=== PATIENT | female | born 1955 | race Caucasian/White ===

== ENCOUNTER 2018-10-08 21:54 | Inpatient (IN) | payer OTHER ==
[2018-10-09] MEDS ORDERED: Metoclopramide IV* 5 MG/ML 2 ML VIAL IV SLOW PU ONE (01:47)
[2018-10-09] MEDS ORDERED: NS 0.9% 1000 ML** 1,000 ML IV ONE ×2 (01:47→03:03)
[2018-10-09] MEDS ORDERED: Ketorolac INJ* 30 MG/ML 1 ML VIAL IV PUSH ONE (01:48)
[2018-10-09] MEDS ORDERED: diPHENhydraMINE IV* 50 MG/ML 1 ml VIAL (BENADRYL) SLOW PUSH ONE (01:48)
[2018-10-09] MEDS ORDERED: Morphine 4 MG/ML VIAL (1 ml) 4 MG/ML VIAL IV ONE (01:48)
[2018-10-09] MEDS ORDERED: Lidocaine 2% w/ EPI 1:200,000* 20 ML VIAL ONE (02:20)
[2018-10-09 02:41] LABS: ABS Lymphocytes 0.4 10^3/ul (1.0-4.8); ABS Monocytes 0.2 10^3/ul (0-0.8); ABS Neutrophils 3.8 10^3/ul (1.5-7.7); Eosinophil % 0.2 %; Hematocrit 25 % (35-47); Hemoglobin 8.4 g/dL (12.0-16.0); Lymphocyte % 9.5 %; Mean Corpuscular HGB Conc 34 g/dL (31-36); Mean Corpuscular Hemoglobin 32 pg (27-31); Mean Corpuscular Volume 94 fL (80-97); Mean Platelet Volume 9.1 fL (7.4-10.4); Platelet Count 136 10^3/uL (150-450); Red Blood Count 2.61 10^6 /uL (3.70-4.87); Red Cell Distribution Width 13 % (10-15); White Blood Count 4.5 10^3/uL (3.5-10.8)
[2018-10-09 02:49] LABS: Activated Partial Thrombo Time 42.2 seconds (26.0-38.0); INR 1.51 (0.82-1.09)
[2018-10-09 02:58] LABS: ALT 14 U/L (7-52); AST 11 U/L (13-39); Albumin 2.3 g/dL (3.2-5.2); Albumin/Globulin Ratio 2.1 (1-3); Alkaline Phosphatase 42 U/L (34-104); Blood Urea Nitrogen 10 mg/dL (6-24); C Reactive Protein 1.86 mg/L (<8.01); CO2 Carbon Dioxide 15 mmol/L (22-32); EGFR African American 274.6 (>60); EGFR Non-African American 226.9 (>60); Globulin 1.1 g/dL (2-4); Glucose 90 mg/dL (70-100); Sodium 143 mmol/L (135-145); Total Protein 3.4 g/dL (6.4-8.9)
[2018-10-09 03:01] LABS: Anion Gap 5 mmol/L (2-11); Calcium 4.4 mg/dL (8.6-10.3); Chloride 123 mmol/L (101-111); Potassium 1.9 mmol/L (3.5-5.0)
[2018-10-09] MEDS ORDERED: Potassium Chlor TAB* 20 MEQ TAB.ER PO ONE (03:04)
[2018-10-09] MEDS ORDERED: KCL 10 MEQ/50 ML IVPREMIX* 10 MEQ/50 ML BAG IV ONE (03:04)
[2018-10-09] MEDS ORDERED: Magnesium Sulfate 2 GM IV* 2 GM/50 ML BAG IVPB ONE (03:04)
[2018-10-09] MEDS ORDERED: Calcium Gluconate INJ* 1 GM in NS 0.9% 50 ML* 50 ML IVPB ONE (03:05)
[2018-10-09] MEDS ORDERED: NS 0.9% 50 ML* 50 ML ONE (03:07)
[2018-10-09 03:13] LABS: Body Fluid Source Cerebral Spinal
--- NOTE | 2018-10-09 03:14 | ED ---
Headache - HPI Summary HPI Summary: The pt is a 62 yr old female presenting to [facility] c/o headache beginning 12 hours [employer]ACTIVE [employer]ET[employer]. She was diagnosed with shingles 2 days ago. She reports nerve pain starting 6 days ago, blisters on her left arm starting 3 days ago, back and neck pain, feeling like she is burning up, nausea, vomiting, and headache. She is currently in pain and rates it as a 9/10 in severity. The pt has been taking Valtrex, and a rotation of tramadol, ibuprofen, and Tylenol every 2 hours. She has a hx of migraines but states the present BARTHOLOMEW is dissimilar to her migraines. She denies photophobia. - History Of Current Complaint Chief Complaint: EDHeadache Stated Complaint: HEADACHE/BACK PAIN PER PT Time Seen by Provider: 10/09/18 01:50 Hx Obtained From: Patient Onset/Duration: Gradual Onset, Started days ago, Still Present Initially Headache Was: Initial Pain Scale(0-10)= - 9 Currently Pain Is: Current Pain Scale(0-10)= - 9 Timing: Constant Associated Signs And Symptoms: Nausea, Vomiting, Fever - subjective fever, on vitals temp is 99.1 F, Neck Pain, Other (Noted In Comments) - back pain, blisters, "nerve" pain, "burning up" - Allergies/Home Medications Allergies/Adverse Reactions: Allergies Allergy/AdvReac Type Severity Reaction Status Date / Time No Known Allergies Allergy Verified 05/04/12 16:10 Home Medications: Home Medications Gabapentin CAP(*) [Neurontin 300 CAP(*)] 300 mg PO BEDTIME 10/09/18 [History Confirmed 10/09/18] Omeprazole 20 mg PO DAILY 10/09/18 [History Confirmed 10/09/18] Valacyclovir HCl [Valacyclovir] 1,000 mg PO TID 10/09/18 [History Confirmed ] ZOLMitriptan [Zomig] 2.5 mg NS DAILY PRN 10/09/18 [History Confirmed 10/09/18] PMH/Surg Hx/FS Hx/Imm Hx Endocrine/Hematology History: Reports: Hx Thyroid Disease Denies: Hx Diabetes Cardiovascular History: Denies: Hx Hypertension, Hx Pacemaker/ICD Respiratory History: Denies: Hx Asthma Sensory History: Denies: Hx Hearing Aid Psychiatric History: Denies: Hx Panic Disorder - Cancer History Cancer Type, Location and Year: basal cell,skin - Surgical History Surgery Procedure, Year, and Place: knee meniscus left knee, RT carpal tunnel and trigger finger release Infectious Disease History: No Infectious Disease History: Denies: Traveled Outside the [place] in Last 30 Days - Family History Known Family History: Positive: Other - FMHx of colonic polyps - Social History Substance Use Type: Reports: None Hx Tobacco Use: No Review of Systems Constitutional: Other - positive - feeling "hot" Positive: Fever - subjective fever, on vitals temp is 99.1 F Negative: Photophobia Positive: Vomiting, Nausea Positive: Other - Positive - back and neck pain Positive: Other - Positive - blisters on left arm Neurological: Other - positive - "nerve" pain Positive: Headache All Other Systems Reviewed And Are Negative: Yes Physical Exam - Summary Physical Exam Summary: VITAL SIGNS: Reviewed. GENERAL: Patient is a well-developed and nourished female who is lying comfortable in the stretcher. Patient is not in any acute respiratory distress. HEAD AND FACE: No signs of trauma. No ecchymosis, hematomas or skull depressions. No sinus tenderness. EYES: PERRLA, EOMI x 2, No injected conjunctiva, no nystagmus. EARS: Hearing grossly intact. Ear canals and tympanic membranes are within normal limits. MOUTH: Oropharynx within normal limits. NECK: Supple, trachea is midline, no adenopathy, no JVD, no carotid bruit, no c- spine tenderness, neck with full ROM, mild nuchal rigidity CHEST: Symmetric, no tenderness at palpation LUNGS: Clear to auscultation bilaterally. No wheezing or crackles. CVS: Regular rate and rhythm, S1 and S2 present, no murmurs or gallops appreciated. ABDOMEN: Soft, non-tender. No signs of distention. No rebound no guarding, and no masses palpated. Bowel sounds are normal. EXTREMITIES: FROM in all major joints, no edema, no cyanosis or clubbing. NEURO: Alert and oriented x 3. No acute neurological deficits. Speech is normal and follows commands. GCS 15. SKIN: Dry and warm. Vesicular rash of left wrist and left shoulder. Triage Information Reviewed: Yes Vital Signs On Initial Exam: Initial Vitals Temp Pulse Resp BP Pulse Ox 99.1 F 92 18 157/99 96 10/08/18 21:58 10/08/18 21:58 10/08/18 21:58 10/08/18 21:58 10/08/18 21:58 Vital Signs Reviewed: Yes Procedures - Lumbar Puncture l3-l4 Position: Lateral Decubitus Aseptic Technique: Lidocaine Anesthesia Used: 2.0% Lido - w/ epi Spinal Needle Used: 20 Gauge Lumbar Puncture Note: L3-L4 Diagnostics - Vital Signs Vital Signs Temp Pulse Resp BP Pulse Ox 10/09/18 01:58 18 10/09/18 00:03 98.6 F 84 18 154/87 96 10/08/18 21:58 99.1 F 92 18 157/99 96 - Laboratory Lab Results: Lab Results 10/09/18 10/09/18 10/09/18 Range/Units 02:32 02:32 02:32 WBC 4.5 (3.5-10.8) 10^3/uL RBC 2.61 L (3.70-4.87) 10^6 /uL Hgb 8.4 L (12.0-16.0) g/dL Hct 25 L (35-47) % MCV 94 (80-97) fL MCH 32 H (27-31) pg MCHC 34 (31-36) g/dL RDW 13 (10-15) % Plt Count 136 L (150-450) 10^3/uL MPV 9.1 (7.4-10.4) fL Neut % (Auto) 85.3 % Lymph % (Auto) 9.5 % [place] % (Auto) 4.5 % Eos % (Auto) 0.2 % Baso % (Auto) 0.5 % Absolute Neuts (auto) 3.8 (1.5-7.7) 10^3/ul Absolute Lymphs (auto) 0.4 L (1.0-4.8) 10^3/ul Absolute Monos (auto) 0.2 (0-0.8) 10^3/ul Absolute Eos (auto) 0.0 (0-0.6) 10^3/ul Absolute Basos (auto) 0.0 (0-0.2) 10^3/ul Absolute Nucleated RBC 0.0 10^3/ul Nucleated RBC % 0.0 INR (Anticoag Therapy) 1.51 H (0.82-1.09) APTT 42.2 H (26.0-38.0) seconds Sodium 143 (135-145) mmol/L Potassium 1.9 L* (3.5-5.0) mmol/L Chloride 123 H (101-111) mmol/L Carbon Dioxide 15 L (22-32) mmol/L Anion Gap 5 (2-11) mmol/L BUN 10 (6-24) mg/dL Creatinine < 0.30 L (0.51-0.95) mg/dL Est GFR ( Amer) 274.6 (>60) Est GFR (Non-Af Amer) 226.9 (>60) BUN/Creatinine Ratio 33.0 H (8-20) Glucose 90 (70-100) mg/dL Calcium 4.4 L* (8.6-10.3) mg/dL Total Bilirubin 0.20 (0.2-1.0) mg/dL AST 11 L (13-39) U/L ALT 14 (7-52) U/L Alkaline Phosphatase 42 (34-104) U/L C-Reactive Protein 1.86 (<8.01) mg/L Total Protein 3.4 L (6.4-8.9) g/dL Albumin 2.3 L (3.2-5.2) g/dL Globulin 1.1 L (2-4) g/dL Albumin/Globulin Ratio 2.1 (1-3) Result Diagrams: 10/09/18 05:36 10/09/18 05:36 Lab Statement: Any lab studies that have been ordered have been reviewed, and results considered in the medical decision making process. - CT BRAIN CT CT Interpretation Completed By: Radiologist Summary of CT Findings: IMPRESSION: No acute intracranial abnormality. THIS REPORT WAS REVIEWED BY DR. SESAY Headache Course/Dx - Course Course Of Treatment: The pt is a 62 yr old female presenting to [facility] c/o headache nerve pain starting 6 days ago, blisters on her left arm starting 3 days ago, back and neck pain, feeling like she is burning up, nausea, and vomiting. She was diagnosed with shingles 2 days ago. Photophobia is denied. Test results with no significant abnormalities except for RBC @ 2.61, Hgb @ 8.4 , Hct @ 25, MCH @ 32, Plt Count 136, Absolute Lymphs @ 0.4, INR @ 1.51, APTT @ 42.2, Potassium @ 1.9, Chloride @ 123, Carbon dioxide @ 15, Creatinine < 0.30, BUN/Creatinine @ 33.0, Calcium @ 4.4, Magnesium @ 1.0, AST @ 11, Total protein @ 3.4, Albumin @ 2.3, Globulin @ 1.1. BRAIN CT IMPRESSION: No acute intracranial abnormality. Patient had L3-L4 lumbar puncture done, lido 2% w/ epi was used, patient was in lateral decubitus position. CSF Glucose @ 77, and CSF Total Protein @ 72. In the ED course the patient was given 25mg Benadryl IV , 15mg Toradol IV, 2 gm in 50 mls Magnesium sulfate @ 50 mls/hr IVPB, 10 mg Reglan IV, 4 mg Morphine IV, 40 meq Klor Con Er, 10 meq in 50 mls Potassium Chloride @ 50 mls/hr IV, and 1000 mls Ns @ 1000 mls/hr IV (twice). The pt is diagnosed with hypocalcemia and hypokalemia. Dr. Moore will admit the pt [place] [facility] [place] The patient is agreeable with this plan. - Diagnoses Provider Diagnoses: Hypokalemia, Hypocalcemia - Physician Notifications Discussed Care Of Patient With: Alex Moore Time Discussed With Above Provider: 04:32 Instructed by Provider To: Admit As Inpatient Discharge - Sign-Out/Discharge Documenting (check all that apply): Patient Departure - Admit Patient Received Moderate/Deep Sedation with Procedure: No - Discharge Plan Condition: Stable Disposition: ADMITTED TO [facility] Referrals: Ashwini Ramsay, BOXCAR WEIGHER [Primary Care Provider] - - Attestation Statements Document Initiated by Scribe: Yes Documenting Scribe: DAVINA VICENTE Provider For Whom Mehrane is Documenting (Include Credential): ALON SESAY MD Scribe Attestation: DAVINA Maddox, scribed for ALON SESAY MD on 10/09/18 at 0627. Status of Scribe Document: Ready
[2018-10-09 03:29] LABS: CSF Glucose 77 mg/dL (40-70)
[2018-10-09 03:45] LABS: TSH (Thyroid Stimulating Horm) 0.47 mcIU/mL (0.34-5.60)
[2018-10-09 04:54] LABS: Urine Appearance Clear; Urine Bilirubin Negative (Negative); Urine Blood Negative (Negative); Urine Color Yellow; Urine Glucose Negative (Negative); Urine Ketones Trace (Negative); Urine Nitrite Negative (Negative); Urine Protein Negative (Negative); Urine Specific Gravity 1.009 (1.010-1.030); Urine Urobilinogen Negative (Negative)
[2018-10-09 05:46] LABS: ABS Lymphocytes 0.8 10^3/ul (1.0-4.8); ABS Monocytes 0.3 10^3/ul (0-0.8); ABS Neutrophils 5.6 10^3/ul (1.5-7.7); Eosinophil % 0.1 %; Hematocrit 35 % (35-47); Hemoglobin 12.1 g/dL (12.0-16.0); Lymphocyte % 11.9 %; Mean Corpuscular HGB Conc 35 g/dL (31-36); Mean Corpuscular Hemoglobin 33 pg (27-31); Mean Corpuscular Volume 94 fL (80-97); Mean Platelet Volume 9.5 fL (7.4-10.4); Platelet Count 205 10^3/uL (150-450); Red Cell Distribution Width 14 % (10-15); White Blood Count 6.8 10^3/uL (3.5-10.8)
--- NOTE | 2018-10-09 06:02 | HP ---
History of Present Illness - History of Present Illness History of Present Illness: 62yoF with hypothroidism, depression, arthritis on gabapentin, migraine history but hasn't had one in a long time, recently diagnosed shingles on the left upper extremity started on valacyclovir 2 days ago comes in due to severe headache. Pain is all over her head, some photophobia but not as much as she usually has, worse with movement, neck rigitidy, felt feverish but temperature here was normal. Patient had episode of vomiting non-stop when she first arrived. Patient initially had malaise and felt like she had the flu. 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 GERD Shingles diagnosed resently Depression Migraine hasn't had one in long time Arthritis Past Surgical History Left knee meniscus tear repaired Left knee replacement Right carpal tunnel release Right 3rd and 4th trigger finger release Multiple skin excisions for basal cell ca mostly from face and one in leg. Social History Quit in 1993 piror to that had 15-20pack year history, used to drink often but now cut down and hasn't had one in few days drinks wiskey. No other drugs. 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 Lives with domestic partner and son. Family History Dementia in both parents, arthritis-rheumatoid in father, osteoarthritis in mother, mother also had heart problems. Allergies Allergy/AdvReac Type Severity Reaction Status Date / Time No Known Allergies Allergy Verified 05/04/12 16:10 Home Medications Medication Instructions Recorded Confirmed Type buPROPion TAB* [Wellbutrin TAB*] 150 mg PO BID 05/04/12 10/09/18 History Levothyroxine TAB* [Synthroid TAB*] 0.75 mcg PO DAILY 04/19/18 10/09/18 History Gabapentin CAP(*) [Neurontin 300 300 mg PO BEDTIME 10/09/18 10/09/18 History CAP(*)] Omeprazole 20 mg PO DAILY 10/09/18 10/09/18 History Valacyclovir HCl [Valacyclovir] 1,000 mg PO TID 10/09/18 10/09/18 History ZOLMitriptan [Zomig] 2.5 mg NS DAILY PRN 10/09/18 10/09/18 History Review of Systems - Measurements Intake and Output: Intake and Output Last 24 Hours 10/06/18 10/07/18 10/08/18 10/09/18 06:59 06:59 06:59 06:59 Intake Total 2100 Balance 2100 Weight 155 lb Intake: IV Fluids 2099 - Review of Systems Constitutional Symptoms: Positive: Fever Dermatology: Positive: Skin Lesions - Left extremity shingles. Eyes: Negative: Change in Vision Pulmonary: Negative: Cough, Sputum, Shortness of Breath Cardiology: Negative: Chest Pain, Palpitations Gastroenterology: Positive: Vomiting Negative: Abdominal Pain, Constipation, Diarrhea Endocrinology: Positive: Thyroid Problems Objective Vital Signs - 8 hr 10/08/18 10/09/18 10/09/18 21:58 00:03 01:58 Temperature 99.1 F 98.6 F Pulse Rate 92 84 Respiratory 18 18 18 Rate Blood Pressure 157/99 154/87 (mmHg) O2 Sat by Pulse 96 96 Oximetry 10/09/18 10/09/18 10/09/18 02:20 03:00 04:00 Temperature Pulse Rate 78 77 Respiratory 6 15 16 Rate Blood Pressure (mmHg) O2 Sat by Pulse 95 94 Oximetry Oxygen Devices in Use Now: None Eyes: No Scleral Icterus, PERRLA Ears/Nose/Mouth/Throat: NL Teeth, Lips, Gums, Clear Oropharnyx, Mucous Membranes Moist Neck: NL Appearance and Movements; NL JVP, Trachea Midline Respiratory: Clear to Auscultation Cardiovascular: NL Sounds; No Murmurs; No JVD, RRR, No Edema Abdominal: NL Sounds; No Tenderness; No Distention, No Hepatosplenomegaly Extremities: No Edema Skin: - - Multiple papular and vesicular rash on the left extremity. Neurological: Alert and Oriented x 3, NL Sensation, NL Muscle Strength and Tone Nutrition: Taking PO's Result Diagrams: 10/09/18 05:36 10/09/18 05:36 Additional Lab and Data: Laboratory Last Values WBC 6.8 10^3/uL (3.5-10.8) 10/09/18 05:36 RBC 3.70 10^6 /uL (3.70-4.87) 10/09/18 05:36 Hgb 12.1 g/dL (12.0-16.0) 10/09/18 05:36 Hct 35 % (35-47) 10/09/18 05:36 MCV 94 fL (80-97) 10/09/18 05:36 MCH 33 pg (27-31) H 10/09/18 05:36 MCHC 35 g/dL (31-36) 10/09/18 05:36 RDW 14 % (10-15) 10/09/18 05:36 Plt Count 205 10^3/uL (150-450) 10/09/18 05:36 MPV 9.5 fL (7.4-10.4) 10/09/18 05:36 Neut % (Auto) 82.5 % 10/09/18 05:36 Lymph % (Auto) 11.9 % 10/09/18 05:36 [place] % (Auto) 5.0 % 10/09/18 05:36 Eos % (Auto) 0.1 % 10/09/18 05:36 Baso % (Auto) 0.5 % 10/09/18 05:36 Absolute Neuts (auto) 5.6 10^3/ul (1.5-7.7) 10/09/18 05:36 Absolute Lymphs (auto) 0.8 10^3/ul (1.0-4.8) L 10/09/18 05:36 Absolute Monos (auto) 0.3 10^3/ul (0-0.8) 10/09/18 05:36 Absolute Eos (auto) 0.0 10^3/ul (0-0.6) 10/09/18 05:36 Absolute Basos (auto) 0.0 10^3/ul (0-0.2) 10/09/18 05:36 Absolute Nucleated RBC 0.0 10^3/ul 10/09/18 05:36 Nucleated RBC % 0.0 10/09/18 05:36 INR (Anticoag Therapy) 1.51 (0.82-1.09) H 10/09/18 02:32 APTT 42.2 seconds (26.0-38.0) H 10/09/18 02:32 Sodium 137 mmol/L (135-145) 10/09/18 05:36 Potassium 3.8 mmol/L (3.5-5.0) D 10/09/18 05:36 Chloride 107 mmol/L (101-111) 10/09/18 05:36 Carbon Dioxide 24 mmol/L (22-32) 10/09/18 05:36 Anion Gap 6 mmol/L (2-11) 10/09/18 05:36 BUN 13 mg/dL (6-24) 10/09/18 05:36 Creatinine 0.50 mg/dL (0.51-0.95) L 10/09/18 05:36 Est GFR ( Amer) 152.3 (>60) 10/09/18 05:36 Est GFR (Non-Af Amer) 125.9 (>60) 10/09/18 05:36 BUN/Creatinine Ratio 26.0 (8-20) H 10/09/18 05:36 Glucose 131 mg/dL (70-100) H 10/09/18 05:36 Calcium 8.5 mg/dL (8.6-10.3) L 10/09/18 05:36 Phosphorus 2.1 mg/dL (2.5-5.0) L 10/09/18 05:36 Magnesium 2.5 mg/dL (1.9-2.7) 10/09/18 05:36 Total Bilirubin 0.20 mg/dL (0.2-1.0) 10/09/18 05:36 AST 19 U/L (13-39) 10/09/18 05:36 ALT 25 U/L (7-52) 10/09/18 05:36 Alkaline Phosphatase 78 U/L (34-104) 10/09/18 05:36 C-Reactive Protein 1.86 mg/L (<8.01) 10/09/18 02:32 Total Protein 6.0 g/dL (6.4-8.9) L 10/09/18 05:36 Albumin 4.0 g/dL (3.2-5.2) 10/09/18 05:36 Globulin 2.0 g/dL (2-4) 10/09/18 05:36 Albumin/Globulin Ratio 2.0 (1-3) 10/09/18 05:36 TSH 0.47 mcIU/mL (0.34-5.60) 10/09/18 02:32 Urine Color Yellow 10/09/18 04:40 Urine Appearance Clear 10/09/18 04:40 Urine pH 7.0 (5-9) 10/09/18 04:40 Ur Specific [place] 1.009 (1.010-1.030) L 10/09/18 04:40 Urine Protein Negative (Negative) 10/09/18 04:40 Urine Ketones Trace (Negative) A 10/09/18 04:40 Urine Blood Negative (Negative) 10/09/18 04:40 Urine Nitrate Negative (Negative) 10/09/18 04:40 Urine Bilirubin Negative (Negative) 10/09/18 04:40 Urine Urobilinogen Negative (Negative) 10/09/18 04:40 Ur Leukocyte Esterase Negative (Negative) 10/09/18 04:40 Urine Glucose Negative (Negative) 10/09/18 04:40 Fluid Source Cerebral spinal 10/09/18 03:00 Fluid Volume 2 mL 10/09/18 03:00 Fluid Color Colorless 10/09/18 03:00 Fluid Appearance Clear 10/09/18 03:00 Fluid WBC 0 /mcL 10/09/18 03:00 Fluid RBC 0 /mcL 10/09/18 03:00 Fluid Tot Cell Count Not Reportable 10/09/18 03:00 Fluid Neutrophils Not Reportable 10/09/18 03:00 CSF Cell Count Tube # 4 10/09/18 03:00 CSF Glucose 77 mg/dL (40-70) H 10/09/18 03:00 CSF Total Protein 72 mg/dL (15-45) H 10/09/18 03:00 Microbiology and Other Data: Microbiology 10/09/18 03:00 CSF Gram Stain (Tube 3) - Preliminary Cerebral Spinal Fluid Diagnostic Imaging: CT BRAIN WO IMPRESSION: No acute intracranial abnormality. Assess/Plan/Problems-Billing Assessment: - Patient Problems (1) Intractable headache Current Visit: Yes Status: Acute Code(s): R51 - HEADACHE SNOMED Code(s): 68341517 Comment: Unclear if this is another migranous attack. Will get Neurology evaluation. Start morphine, reglan, benadryl. Restart home gabapentin. (2) Shingles rash Current Visit: Yes Status: Acute Code(s): B02.9 - ZOSTER WITHOUT COMPLICATIONS SNOMED Code(s): 8345215 Comment: Restart her anti-viral (3) Hypothyroidism Current Visit: Yes Status: Acute Code(s): E03.9 - HYPOTHYROIDISM, UNSPECIFIED SNOMED Code(s): 88667944 Comment: Continue levathyroxin. Check TSH
[2018-10-09 06:19] LABS: Calcium 8.5 mg/dL (8.6-10.3); EGFR African American 152.3 (>60); EGFR Non-African American 125.9 (>60); Magnesium 2.5 mg/dL (1.9-2.7); Phosphorus 2.1 mg/dL (2.5-5.0); Potassium 3.8 mmol/L (3.5-5.0); Total Bilirubin 0.2 mg/dL (0.2-1.0)
[2018-10-09] MEDS ORDERED: Ondansetron INJ* 2 MG/ML VIAL IV PRN (06:55)
[2018-10-09] MEDS ORDERED: NS 0.9% 1000 ML** 1,000 ML IV SCH (07:00)
[2018-10-09] MEDS ORDERED: ZOLMITRIPTAN 2.5 MG NS PRN (07:02)
[2018-10-09] MEDS: Morphine 4 MG/ML VIAL (1 ml) 4 MG/ML VIAL IV PRN ×4 (07:13→21:43)
[2018-10-09 07:47] LABS: TSH (Thyroid Stimulating Horm) 0.82 mcIU/mL (0.34-5.60)
[2018-10-09 07:49] LABS: Free T4 0.84 ng/dL (0.61-1.12)
[2018-10-09] MEDS ORDERED: ValACYclovir (*) 1 GM TAB PO SCH (09:00)
[2018-10-09] MEDS: buPROPion TAB* 75 MG PO SCH ×2 (09:55→19:58)
[2018-10-09] MEDS: Pantoprazole TAB * 40 MG TAB PO SCH (09:55)
[2018-10-09] MEDS ORDERED: cefTRIAXone(*) 2 GM in NS 0.9% 100 ML* 100 ML IVPB SCH (10:00)
[2018-10-09] MEDS: Levothyroxine TAB* 75 MCG TAB PO SCH (10:40)
[2018-10-09] MEDS ORDERED: Vancomycin per Pharmacy* NOTE FOLLOW UP PRN (10:41)
[2018-10-09] MEDS: NS 0.9% IVPB SCH ×2 (11:20→18:16)
[2018-10-09] MEDS: ACYCLOVIR IVPB SCH ×2 (11:20→18:16)
[2018-10-09] MEDS ORDERED: Vancomycin(*) 1,000 MG in NS 0.9% 250 ML* 250 ML IVPB ONE (14:00)
[2018-10-09] MEDS: Vancomycin(*) 1,000 MG in NS 0.9% 250 ML* 250 ML IVPB ONE ×2 (14:15→14:24)
--- NOTE | 2018-10-09 16:11 | PN ---
Subjective Date of Service: 10/09/18 Interval History: Severe headache.Admitted a few hours ago.Mild photophobia.Neck stiffness present Objective Active Medications: Bupropion HCl (Wellbutrin Tab*) 150 mg PO BID [facility] Last Admin: 10/09/18 09:55 Dose: 150 mg Diphenhydramine HCl (Benadryl Iv*) 25 mg IV Q6H PRN PRN Reason: Headache Gabapentin (Neurontin Cap(*)) 300 mg PO BEDTIME [facility] Sodium Chloride (Ns 0.9% 1000 Ml) 1,000 mls @ 25 mls/hr IV PER RATE [facility] Last Admin: 10/09/18 10:29 Dose: 25 mls/hr Acyclovir Sodium 547 mg/ (Sodium Chloride) 110.94 mls @ 110.94 mls/hr IVPB Q8H [facility] Last Admin: 10/09/18 11:20 Dose: 100 mls/hr Levothyroxine Sodium (Synthroid Tab*) 75 mcg PO DAILY@0600 [facility] Last Admin: 10/09/18 10:40 Dose: 75 mcg Morphine Sulfate (Morphine 4 Mg/Ml Vial (1 Ml)) 4 mg IV Q4H PRN PRN Reason: PAIN - MODERATE TO SEVERE Last Admin: 10/09/18 10:38 Dose: 4 mg Non-Formulary Medication (Zolmitriptan [Zomig]) 2.5 mg NS DAILY PRN PRN Reason: MIGRAINE HEADACHE Ondansetron HCl (Zofran Inj*) 4 mg IV Q4H PRN PRN Reason: NAUSEA/VOMITING Last Admin: 10/09/18 07:13 Dose: 4 mg Pantoprazole Sodium (Protonix Tab*) 40 mg PO DAILY [facility] Last Admin: 10/09/18 09:55 Dose: 40 mg Vital Signs - 8 hr 10/09/18 10/09/18 10/09/18 08:55 10:37 10:38 Temperature 98.2 F 98.5 F Pulse Rate 68 72 Respiratory 14 16 15 Rate Blood Pressure 129/72 124/73 (mmHg) O2 Sat by Pulse 94 95 Oximetry 10/09/18 10/09/18 11:25 14:55 Temperature 98.4 F 98.7 F Pulse Rate 67 63 Respiratory 20 20 Rate Blood Pressure 112/66 111/59 (mmHg) O2 Sat by Pulse 97 96 Oximetry Oxygen Devices in Use Now: None Eyes: No Scleral Icterus Ears/Nose/Mouth/Throat: NL Teeth, Lips, Gums Neck: NL Appearance and Movements; NL JVP Respiratory: Symmetrical Chest Expansion and Respiratory Effort, Clear to Auscultation Cardiovascular: NL Sounds; No Murmurs; No JVD Extremities: No Edema Neurological: Alert and Oriented x 3, - - [place] mildly pos.Neck stiff but able to move neck Result Diagrams: 10/09/18 05:36 10/09/18 05:36 Additional Lab and Data: Laboratory Last Values WBC 6.8 10^3/uL (3.5-10.8) 10/09/18 05:36 RBC 3.70 10^6 /uL (3.70-4.87) 10/09/18 05:36 Hgb 12.1 g/dL (12.0-16.0) 10/09/18 05:36 Hct 35 % (35-47) 10/09/18 05:36 MCV 94 fL (80-97) 10/09/18 05:36 MCH 33 pg (27-31) H 10/09/18 05:36 MCHC 35 g/dL (31-36) 10/09/18 05:36 RDW 14 % (10-15) 10/09/18 05:36 Plt Count 205 10^3/uL (150-450) 10/09/18 05:36 MPV 9.5 fL (7.4-10.4) 10/09/18 05:36 Neut % (Auto) 82.5 % 10/09/18 05:36 Lymph % (Auto) 11.9 % 10/09/18 05:36 [place] % (Auto) 5.0 % 10/09/18 05:36 Eos % (Auto) 0.1 % 10/09/18 05:36 Baso % (Auto) 0.5 % 10/09/18 05:36 Absolute Neuts (auto) 5.6 10^3/ul (1.5-7.7) 10/09/18 05:36 Absolute Lymphs (auto) 0.8 10^3/ul (1.0-4.8) L 10/09/18 05:36 Absolute Monos (auto) 0.3 10^3/ul (0-0.8) 10/09/18 05:36 Absolute Eos (auto) 0.0 10^3/ul (0-0.6) 10/09/18 05:36 Absolute Basos (auto) 0.0 10^3/ul (0-0.2) 10/09/18 05:36 Absolute Nucleated RBC 0.0 10^3/ul 10/09/18 05:36 Nucleated RBC % 0.0 10/09/18 05:36 INR (Anticoag Therapy) 1.51 (0.82-1.09) H 10/09/18 02:32 APTT 42.2 seconds (26.0-38.0) H 10/09/18 02:32 Sodium 137 mmol/L (135-145) 10/09/18 05:36 Potassium 3.8 mmol/L (3.5-5.0) D 10/09/18 05:36 Chloride 107 mmol/L (101-111) 10/09/18 05:36 Carbon Dioxide 24 mmol/L (22-32) 10/09/18 05:36 Anion Gap 6 mmol/L (2-11) 10/09/18 05:36 BUN 13 mg/dL (6-24) 10/09/18 05:36 Creatinine 0.50 mg/dL (0.51-0.95) L 10/09/18 05:36 Est GFR ( Amer) 152.3 (>60) 10/09/18 05:36 Est GFR (Non-Af Amer) 125.9 (>60) 10/09/18 05:36 BUN/Creatinine Ratio 26.0 (8-20) H 10/09/18 05:36 Glucose 131 mg/dL (70-100) H 10/09/18 05:36 Calcium 8.5 mg/dL (8.6-10.3) L 10/09/18 05:36 Phosphorus 2.1 mg/dL (2.5-5.0) L 10/09/18 05:36 Magnesium 2.5 mg/dL (1.9-2.7) 10/09/18 05:36 Total Bilirubin 0.20 mg/dL (0.2-1.0) 10/09/18 05:36 AST 19 U/L (13-39) 10/09/18 05:36 ALT 25 U/L (7-52) 10/09/18 05:36 Alkaline Phosphatase 78 U/L (34-104) 10/09/18 05:36 C-Reactive Protein 1.86 mg/L (<8.01) 10/09/18 02:32 Total Protein 6.0 g/dL (6.4-8.9) L 10/09/18 05:36 Albumin 4.0 g/dL (3.2-5.2) 10/09/18 05:36 Globulin 2.0 g/dL (2-4) 10/09/18 05:36 Albumin/Globulin Ratio 2.0 (1-3) 10/09/18 05:36 TSH 0.47 mcIU/mL (0.34-5.60) 10/09/18 02:32 Urine Color Yellow 10/09/18 04:40 Urine Appearance Clear 10/09/18 04:40 Urine pH 7.0 (5-9) 10/09/18 04:40 Ur Specific [place] 1.009 (1.010-1.030) L 10/09/18 04:40 Urine Protein Negative (Negative) 10/09/18 04:40 Urine Ketones Trace (Negative) A 10/09/18 04:40 Urine Blood Negative (Negative) 10/09/18 04:40 Urine Nitrate Negative (Negative) 10/09/18 04:40 Urine Bilirubin Negative (Negative) 10/09/18 04:40 Urine Urobilinogen Negative (Negative) 10/09/18 04:40 Ur Leukocyte Esterase Negative (Negative) 10/09/18 04:40 Urine Glucose Negative (Negative) 10/09/18 04:40 Fluid Source Cerebral spinal 10/09/18 03:00 Fluid Volume 2 mL 10/09/18 03:00 Fluid Color Colorless 10/09/18 03:00 Fluid Appearance Clear 10/09/18 03:00 Fluid WBC 0 /mcL 10/09/18 03:00 Fluid RBC 0 /mcL 10/09/18 03:00 Fluid Tot Cell Count Not Reportable 10/09/18 03:00 Fluid Neutrophils Not Reportable 10/09/18 03:00 CSF Cell Count Tube # 4 10/09/18 03:00 CSF Glucose 77 mg/dL (40-70) H 10/09/18 03:00 CSF Total Protein 72 mg/dL (15-45) H 10/09/18 03:00 Microbiology and Other Data: Microbiology 10/09/18 03:00 CSF Gram Stain (Tube 3) - Preliminary Cerebral Spinal Fluid Diagnostic Imaging: CT BRAIN WO IMPRESSION: No acute intracranial abnormality. Assess/Plan/Problems-Billing Assessment: - Patient Problems (1) Headache Current Visit: Yes Status: Acute Code(s): R51 - HEADACHE SNOMED Code(s): 80237892 Comment: Could be meningitis/encephalitis see below Poss interaction between Valsartan and Valtex pt was on per Dr Starr not currently on valsartan (2) Aseptic meningitis Current Visit: Yes Status: Acute Code(s): G03.0 - NONPYOGENIC MENINGITIS SNOMED Code(s): 310326917 Comment: Poss aseptic/viral meningitis encephalitis in setting of recent Shingles Will switch to IV acyclovir Requested consult with Dr Starr Less likely bacterial based on CSF and presentation.Placed on Ceftriaxone,Vanco emperically this am and now as less likely stopped bacterial coverage per d/w neuro Varicella PSR added in addition to HSV and other CSF studies Will follow Refer H n p for other details (3) Electrolyte abnormality Current Visit: Yes Status: Acute Code(s): E87.8 - OTH DISORDERS OF ELECTROLYTE AND FLUID BALANCE, NEC SNOMED Code(s): 968670749 Comment: multiple elec abn on presentation.replaced.will follow
--- NOTE | 2018-10-09 17:01 | CONS ---
NEUROLOGY CONSULTATION: DATE OF CONSULT: 10/09/18 LOCATION: She is an inpatient in room 439. REFERRING PROVIDER: Dr. Hughes. CHIEF COMPLAINT: Headache, shingles. HISTORY OF PRESENT ILLNESS: Radha Edmonds is a 62-year-old woman who developed pain in her left a rm about 5 to 6 days prior to admission. By about the fifth day prior to admission, it was quite victoria nful. She made an appointment to see her physician, who she saw Thursday, 2 days prior to admission . She at that point had developed a skin lesion in between the ring and little finger of her left calderón nd. By the time she got to the physician's office, she had more vesicular lesions in the upper arm. She was evaluated by her primary care physician and diagnosed with shingles. She was started on anna marie acyclovir Thursday. She took a dose Thursday evening and then a dose . By evening, she had a bad headache. By Thursday, the day of admission, she had a severe headach e which was global and retroorbital and was associated with some neck rigidity and photophobia. She had nausea and vomiting. In the emergency room, she had frequent vomiting and a severe headache. Sh e had a lumbar puncture performed. Lumbar puncture was notable for clear colorless fluid with 0 whit e blood cells and 0 red blood cells. Glucose was 77 and spinal fluid protein was elevated at 72. Bl ood glucose at the time of the spinal tap was 131. Her last dose of Valtrex was on the day of admiss ion at about 5:00 In the evening. She was switched to intravenous acyclovir. She was treated with m orphine sulfate for her headaches 4 mg q.4 hours. That helped considerably in decreasing headache int ensity. She noted that after the first dose, her headache returned with some severity before the nex t dose was due. Currently, she notes that the headache has not returned with the same degree of abel rity, although it is still there. At the time that I evaluated her, it was approximately 4-1/2 to 5 hours after her last dose. Noted some pain in the spot right in between her shoulder blades when she flexes her neck. She noted it on the right and it was very painful. It seems a bit less after the morphine. Prior to the shingles, she had not been sick recently. No recent immunizations, flus, or infections. There is no history of immunodeficiency. PAST MEDICAL HISTORY: Notable for hypothyroidism, gastroesophageal reflux, depression, episodic migr aines. PAST SURGICAL HISTORY: She has had a right carpal tunnel release, basal cell carcinomas removed, lef t knee replacement. FAMILY HISTORY: Noncontributory. SOCIAL HISTORY: She lives with her partner and son. She is an ex-smoker. She apparently drinks whi skey periodically, but not recently. REVIEW OF SYSTEMS: Otherwise negative for any recent illnesses. There is no history of hypertension , diabetes, cardiac, pulmonary, renal, other GI, , or other psychiatric disease. There has been no change in vision, hearing, or ear pain. She feels diffusely washed out and weak, but no focal weakn ess. With the shingles, she was having pretty severe left arm pain and was taking tramadol and ibupr ofen on a frequent basis. PHYSICAL EXAM: She is well nourished and well hydrated. Temperature is 98.5, blood pressure 124/73, heart rate 70 and regular. Respiratory rate is 16 and oxygen saturation is 95% on room air. Heart is in a regular rhythm without murmurs. Lungs are clear bilaterally. There are no cervical bruits. Oral mucosa is moist without oral lesions. She has a few intact vesicular lesions just to the left and inferior to her C7 spinous process. She has a few vesicular lesions in the upper arm and near th e left elbow. She has few vesicular lesions on the ulnar aspect of the left hand. Strength is intact in the upper extremities, although limited somewhat by antecubital intravenous acc ess. She has good strength in the legs as well. Reflexes are intact and symmetric at biceps, brachioradialis, and triceps. Plantar responses are wit hdrawal bilaterally. Facial musculature is intact and symmetric. Facial sensation is intact. Palate and tongue appear no rmal and tongue protrudes in the midline and palate rises symmetrically. There is no dysarthria. He aring is intact bilaterally. Eye movements are normal. Pupils react equally from 3 to 2 mm. Fundus copic exam is normal bilaterally. Visual duran are full to confrontation. She is alert and oriented and an excellent detailed historian. Memory is intact and language is flue nt. She has adequate attention, concentration, and fund of knowledge. There is no tremor, myoclonus, or asterixis. I did not test her gait. LABORATORY DATA: Additional laboratory data is notable for a normal CBC on admission including white blood cell count, chemistries notable for glucose of 131 and a calcium of 8.5 and otherwise normal c hemistry profile. Liver enzymes are normal. TSH is normal as is free T4. CRP is normal at 1.86. U rinalysis is within normal limits. Serologies are all pending on the spinal fluid. CSF Gram stain is reported as no organisms seen. IMPRESSION AND PLAN: Impression is that of varicella zoster of the left T1 and C8 distribution. She subsequently developed a severe headache starting about 24 hours or less prior to admission. I am s uspicious that headache is from the valacyclovir rather than from varicella zoster affecting the kevin ngelijah. Her spinal tap did not show any evidence of inflammation other than a moderately to mildly elie vated protein. Valacyclovir can cause headaches as can acyclovir. At this point, I would recommend continuing IV acyclovir while we await results of laboratory tests. She could have positive varicella-zoster virus in her spinal fluid just from having shingles, I tyrone messer. I think I would recommend repeating her spinal tap in a few days to see if there is any evidenc e of inflammation. If there is not and she has no headache, I think we could consider stopping the a cyclovir. Infectious disease consultation I think should also be considered. I explained my impress ion to Radha and her partner and answered questions regarding different forms of meningitis and the plan for possibly doing a repeat spinal tap in a few days. I will continue to follow her along with you. [id number]/[facility] #: [id number]
[2018-10-09] MEDS: Gabapentin CAP(*) 300 MG PO SCH (19:59)
[2018-10-09] MEDS ORDERED: Vancomycin(*) 1,000 MG in NS 0.9% 250 ML* 250 ML IVPB SCH (20:30)
[2018-10-09] MEDS: diPHENhydraMINE IV* 50 MG/ML 1 ml VIAL (BENADRYL) IV PRN (21:51)
[2018-10-10] MEDS: Morphine 4 MG/ML VIAL (1 ml) 4 MG/ML VIAL IV PRN (01:55)
[2018-10-10] MEDS: NS 0.9% IVPB SCH ×3 (01:55→21:14)
[2018-10-10] MEDS: ACYCLOVIR IVPB SCH ×3 (01:55→21:14)
[2018-10-10] MEDS ORDERED: ZOLMitriptan ODT(NF) 5 MG TAB PO ONE (04:30)
[2018-10-10] MEDS: Levothyroxine TAB* 75 MCG TAB PO SCH (05:34)
[2018-10-10 05:42] LABS: ABS Eosinophils 0.1 10^3/ul (0-0.6); ABS Lymphocytes 1.6 10^3/ul (1.0-4.8); ABS Monocytes 0.6 10^3/ul (0-0.8); ABS Neutrophils 3.7 10^3/ul (1.5-7.7); Eosinophil % 1.6 %; Hematocrit 34 % (35-47); Hemoglobin 11.4 g/dL (12.0-16.0); Mean Corpuscular HGB Conc 34 g/dL (31-36); Mean Corpuscular Hemoglobin 32 pg (27-31); Mean Corpuscular Volume 94 fL (80-97); Mean Platelet Volume 9.6 fL (7.4-10.4); Nucleated Red Blood Cells % 0.2; Platelet Count 190 10^3/uL (150-450); Red Blood Count 3.56 10^6 /uL (3.70-4.87); Red Cell Distribution Width 14 % (10-15)
[2018-10-10 06:04] LABS: BUN/Creatinine Ratio 17.2 (8-20); Calcium 8.5 mg/dL (8.6-10.3); EGFR African American 128.3 (>60); Potassium 3.8 mmol/L (3.5-5.0)
[2018-10-10] MEDS: buPROPion TAB* 75 MG PO SCH ×2 (10:55→21:14)
[2018-10-10] MEDS: Pantoprazole TAB * 40 MG TAB PO SCH (10:55)
[2018-10-10] MEDS: Acetaminophen TAB* 325 MG PO PRN ×2 (14:13→21:12)
--- NOTE | 2018-10-10 14:45 | CONS ---
NEUROLOGY CONSULT FOLLOWUP: DATE OF CONSULT: 10/10/18 LOCATION: She is an inpatient in room 439. HOSPITALIST: Dr. Hughes. CHIEF COMPLAINT: Shingles, headache. INTERVAL HISTORY: Since yesterday, Radha feels better. 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 She uses zolmitriptan at home for migraines, which she gets very infrequently. She has used morphine once so far today since 4 a.m. MEDICATIONS: Are reviewed and she remains on: 1. Acyclovir intravenously per protocol. 2. Wellbutrin 150 mg p.o. b.i.d. 3. Diphenhydramine 25 mg IV q.6 hours as needed for headache. 4. Gabapentin 300 mg p.o. q.h.s. 5. Levothyroxine 75 mcg p.o. daily. 6. Morphine sulfate 4 mg IV q.4 hours as needed. 7. Zolmitriptan 2.5 mg nasal spray daily as needed for headache. 8. Zofran 4 mg IV q.4 hours p.r.n. nausea. 9. Protonix 40 mg p.o. daily. PHYSICAL EXAM: She is afebrile. Heart rate 60 and regular, blood pressure 116/ 72. Radha was otherwise not examined today. DIAGNOSTIC STUDIES/LAB DATA: Laboratory data includes a CBC today with a hemoglobin of 11.4, which is fairly stable from yesterday, white blood cell count is not elevated at 6.0. Platelet count is normal at 190,000. Microbiology is notable for negative blood cultures and negative spinal fluid cultures after 1 day. IMPRESSION AND PLAN: Impression is that of an improved headache in a patient with shingles. I suspect her headache was from valacyclovir rather than from varicella zoster meningitis. Dr. Hughes is going to see if Dr. Brewster can do an infectious disease consultation tomorrow. If her spinal fluid comes back negative for varicella zoster virus, then I think acyclovir can be switched to a non-valacyclovir antiviral agent for her singles. I would be interested in Dr. Brewster's thoughts on this. If she does have a positive varicella virus in her spinal fluid, it would be more difficult decision as to whether or not to stop intravenous acyclovir. [id number]/[facility] #: [id number] [facility]ENTERRosalee
--- NOTE | 2018-10-10 15:48 | PN ---
Subjective Date of Service: 10/10/18 Interval History: Reports improvement in neck stiffness.OVerall feels sig better.HAd a terrible headache last night and this am Objective Active Medications: Acetaminophen (Tylenol Tab*) 650 mg PO Q6H PRN PRN Reason: FEVER/HEADACHE Last Admin: 10/10/18 14:13 Dose: 650 mg Bupropion HCl (Wellbutrin Tab*) 150 mg PO BID [facility] Last Admin: 10/10/18 10:55 Dose: 150 mg Diphenhydramine HCl (Benadryl Iv*) 25 mg IV Q6H PRN PRN Reason: Headache Last Admin: 10/09/18 21:51 Dose: 25 mg Gabapentin (Neurontin Cap(*)) 300 mg PO BEDTIME [facility] Last Admin: 10/09/18 19:59 Dose: 300 mg Sodium Chloride (Ns 0.9% 1000 Ml) 1,000 mls @ 25 mls/hr IV PER RATE [facility] Last Admin: 10/09/18 10:29 Dose: 25 mls/hr Acyclovir Sodium 547 mg/ (Sodium Chloride) 110.94 mls @ 110.94 mls/hr IVPB Q8H [facility] Last Admin: 10/10/18 11:25 Dose: 110.94 mls/hr Levothyroxine Sodium (Synthroid Tab*) 75 mcg PO DAILY@0600 [facility] Last Admin: 10/10/18 05:34 Dose: 75 mcg Morphine Sulfate (Morphine 4 Mg/Ml Vial (1 Ml)) 4 mg IV Q4H PRN PRN Reason: PAIN - MODERATE TO SEVERE Last Admin: 10/10/18 01:55 Dose: 4 mg Non-Formulary Medication (Zolmitriptan [Zomig]) 2.5 mg NS DAILY PRN PRN Reason: MIGRAINE HEADACHE Ondansetron HCl (Zofran Inj*) 4 mg IV Q4H PRN PRN Reason: NAUSEA/VOMITING Last Admin: 10/09/18 07:13 Dose: 4 mg Pantoprazole Sodium (Protonix Tab*) 40 mg PO DAILY [facility] Last Admin: 10/10/18 10:55 Dose: 40 mg Vital Signs - 8 hr 10/10/18 10/10/18 08:00 11:00 Temperature 98.2 F Pulse Rate 72 Respiratory 18 20 Rate Blood Pressure 122/62 (mmHg) O2 Sat by Pulse 96 Oximetry Oxygen Devices in Use Now: None Eyes: No Scleral Icterus Ears/Nose/Mouth/Throat: NL Teeth, Lips, Gums Neck: NL Appearance and Movements; NL JVP Respiratory: Symmetrical Chest Expansion and Respiratory Effort Cardiovascular: NL Sounds; No Murmurs; No JVD Extremities: No Edema Skin: - - shingles lesion in arm and hand improving Neurological: Alert and Oriented x 3, - - kernig neg today Result Diagrams: 10/10/18 05:06 10/10/18 05:06 Additional Lab and Data: Laboratory Last Values WBC 6.8 10^3/uL (3.5-10.8) 10/09/18 05:36 RBC 3.70 10^6 /uL (3.70-4.87) 10/09/18 05:36 Hgb 12.1 g/dL (12.0-16.0) 10/09/18 05:36 Hct 35 % (35-47) 10/09/18 05:36 MCV 94 fL (80-97) 10/09/18 05:36 MCH 33 pg (27-31) H 10/09/18 05:36 MCHC 35 g/dL (31-36) 10/09/18 05:36 RDW 14 % (10-15) 10/09/18 05:36 Plt Count 205 10^3/uL (150-450) 10/09/18 05:36 MPV 9.5 fL (7.4-10.4) 10/09/18 05:36 Neut % (Auto) 82.5 % 10/09/18 05:36 Lymph % (Auto) 11.9 % 10/09/18 05:36 [place] % (Auto) 5.0 % 10/09/18 05:36 Eos % (Auto) 0.1 % 10/09/18 05:36 Baso % (Auto) 0.5 % 10/09/18 05:36 Absolute Neuts (auto) 5.6 10^3/ul (1.5-7.7) 10/09/18 05:36 Absolute Lymphs (auto) 0.8 10^3/ul (1.0-4.8) L 10/09/18 05:36 Absolute Monos (auto) 0.3 10^3/ul (0-0.8) 10/09/18 05:36 Absolute Eos (auto) 0.0 10^3/ul (0-0.6) 10/09/18 05:36 Absolute Basos (auto) 0.0 10^3/ul (0-0.2) 10/09/18 05:36 Absolute Nucleated RBC 0.0 10^3/ul 10/09/18 05:36 Nucleated RBC % 0.0 10/09/18 05:36 INR (Anticoag Therapy) 1.51 (0.82-1.09) H 10/09/18 02:32 APTT 42.2 seconds (26.0-38.0) H 10/09/18 02:32 Sodium 137 mmol/L (135-145) 10/09/18 05:36 Potassium 3.8 mmol/L (3.5-5.0) D 10/09/18 05:36 Chloride 107 mmol/L (101-111) 10/09/18 05:36 Carbon Dioxide 24 mmol/L (22-32) 10/09/18 05:36 Anion Gap 6 mmol/L (2-11) 10/09/18 05:36 BUN 13 mg/dL (6-24) 10/09/18 05:36 Creatinine 0.50 mg/dL (0.51-0.95) L 10/09/18 05:36 Est GFR ( Amer) 152.3 (>60) 10/09/18 05:36 Est GFR (Non-Af Amer) 125.9 (>60) 10/09/18 05:36 BUN/Creatinine Ratio 26.0 (8-20) H 10/09/18 05:36 Glucose 131 mg/dL (70-100) H 10/09/18 05:36 Calcium 8.5 mg/dL (8.6-10.3) L 10/09/18 05:36 Phosphorus 2.1 mg/dL (2.5-5.0) L 10/09/18 05:36 Magnesium 2.5 mg/dL (1.9-2.7) 10/09/18 05:36 Total Bilirubin 0.20 mg/dL (0.2-1.0) 10/09/18 05:36 AST 19 U/L (13-39) 10/09/18 05:36 ALT 25 U/L (7-52) 10/09/18 05:36 Alkaline Phosphatase 78 U/L (34-104) 10/09/18 05:36 C-Reactive Protein 1.86 mg/L (<8.01) 10/09/18 02:32 Total Protein 6.0 g/dL (6.4-8.9) L 10/09/18 05:36 Albumin 4.0 g/dL (3.2-5.2) 10/09/18 05:36 Globulin 2.0 g/dL (2-4) 10/09/18 05:36 Albumin/Globulin Ratio 2.0 (1-3) 10/09/18 05:36 TSH 0.47 mcIU/mL (0.34-5.60) 10/09/18 02:32 Urine Color Yellow 10/09/18 04:40 Urine Appearance Clear 10/09/18 04:40 Urine pH 7.0 (5-9) 10/09/18 04:40 Ur Specific [place] 1.009 (1.010-1.030) L 10/09/18 04:40 Urine Protein Negative (Negative) 10/09/18 04:40 Urine Ketones Trace (Negative) A 10/09/18 04:40 Urine Blood Negative (Negative) 10/09/18 04:40 Urine Nitrate Negative (Negative) 10/09/18 04:40 Urine Bilirubin Negative (Negative) 10/09/18 04:40 Urine Urobilinogen Negative (Negative) 10/09/18 04:40 Ur Leukocyte Esterase Negative (Negative) 10/09/18 04:40 Urine Glucose Negative (Negative) 10/09/18 04:40 Fluid Source Cerebral spinal 10/09/18 03:00 Fluid Volume 2 mL 10/09/18 03:00 Fluid Color Colorless 10/09/18 03:00 Fluid Appearance Clear 10/09/18 03:00 Fluid WBC 0 /mcL 10/09/18 03:00 Fluid RBC 0 /mcL 10/09/18 03:00 Fluid Tot Cell Count Not Reportable 10/09/18 03:00 Fluid Neutrophils Not Reportable 10/09/18 03:00 CSF Cell Count Tube # 4 10/09/18 03:00 CSF Glucose 77 mg/dL (40-70) H 10/09/18 03:00 CSF Total Protein 72 mg/dL (15-45) H 10/09/18 03:00 Microbiology and Other Data: Microbiology 10/09/18 03:00 CSF Gram Stain (Tube 3) - Preliminary Cerebral Spinal Fluid Diagnostic Imaging: CT BRAIN WO IMPRESSION: No acute intracranial abnormality. Assess/Plan/Problems-Billing Assessment: - Patient Problems (1) Headache Current Visit: Yes Status: Acute Code(s): R51 - HEADACHE SNOMED Code(s): 76704430 Comment: Could be meningitis/ chemical headache from valtex/acyclovir Poss interaction between Valsartan and Valtex pt was on per Dr Starr not currently on valsartan (2) Aseptic meningitis Current Visit: Yes Status: Acute Code(s): G03.0 - NONPYOGENIC MENINGITIS SNOMED Code(s): 596939676 Comment: Poss aseptic/viral meningitis in setting of recent Shingles Less likely bacterial based on CSF and presentation.Placed on Ceftriaxone,Vanco emperically first and as less likely based on csf stopped bacterial coverage per d/w neuro Varicella PSR added in addition to HSV and other CSF studies pending Will need to discuss with Dr Charla BARROS tomorrow/Thursday in consultation (3) Electrolyte abnormality Current Visit: Yes Status: Acute Code(s): E87.8 - OTH DISORDERS OF ELECTROLYTE AND FLUID BALANCE, NEC SNOMED Code(s): 099633966 Comment: lab error
[2018-10-10] MEDS: Gabapentin CAP(*) 300 MG PO SCH (21:15)
[2018-10-11] MEDS: diPHENhydraMINE IV* 50 MG/ML 1 ml VIAL (BENADRYL) IV PRN (00:57)
[2018-10-11] MEDS: ACYCLOVIR IVPB SCH ×3 (01:35→18:44)
[2018-10-11] MEDS: NS 0.9% IVPB SCH ×3 (01:35→18:44)
[2018-10-11] MEDS: Morphine 4 MG/ML VIAL (1 ml) 4 MG/ML VIAL IV PRN (02:51)
[2018-10-11] MEDS: Acetaminophen TAB* 325 MG PO PRN ×2 (06:01→18:50)
[2018-10-11] MEDS: Levothyroxine TAB* 75 MCG TAB PO SCH (06:02)
[2018-10-11 06:08] LABS: ABS Basophils 0.1 10^3/ul (0-0.2); ABS Eosinophils 0.2 10^3/ul (0-0.6); ABS Lymphocytes 1.9 10^3/ul (1.0-4.8); ABS Monocytes 0.6 10^3/ul (0-0.8); ABS Neutrophils 2.2 10^3/ul (1.5-7.7); Eosinophil % 3.5 %; Hematocrit 34 % (35-47); Lymphocyte % 38.2 %; Mean Corpuscular HGB Conc 35 g/dL (31-36); Mean Corpuscular Hemoglobin 33 pg (27-31); Mean Corpuscular Volume 94 fL (80-97); Mean Platelet Volume 9.6 fL (7.4-10.4); Nucleated Red Blood Cells % 0.1; Platelet Count 208 10^3/uL (150-450); Red Blood Count 3.66 10^6 /uL (3.70-4.87); Red Cell Distribution Width 14 % (10-15); White Blood Count 4.9 10^3/uL (3.5-10.8)
[2018-10-11 06:23] LABS: BUN/Creatinine Ratio 19.4 (8-20); Calcium 8.7 mg/dL (8.6-10.3); EGFR African American 118.8 (>60); EGFR Non-African American 98.2 (>60); Potassium 3.7 mmol/L (3.5-5.0)
[2018-10-11] MEDS: buPROPion TAB* 75 MG PO SCH ×2 (07:52→21:55)
[2018-10-11] MEDS: Pantoprazole TAB * 40 MG TAB PO SCH (07:52)
--- NOTE | 2018-10-11 13:33 | PN ---
Subjective Date of Service: 10/11/18 Length of Stay: 2 Days Neurology is following Mrs. Edmonds for the evaluation and management of headache. Interval History: The history was reviewed. To summarize, Mrs. Edmonds is a 62-year-old female with C8 shingles on the left who was started on Valtrex. She subsequently developed severe headaches. An LP showed elevated protein with no WBC. She was placed on acyclovir IV. Dr. Brewster was consulted for further evaluation. S: The headaches are improving. She had severe left arm pain radiating to the head last night and requested morphine. The main issue is her pain in the left upper extremity. She takes gabapentin 300 mg nightly for sleep. She has history of hypothyroidism and arthritis. Review of Systems: Denied CP, SOB, or palpitations. Objective Active Medications: Acetaminophen (Tylenol Tab*) 650 mg PO Q6H PRN PRN Reason: FEVER/HEADACHE Last Admin: 10/11/18 06:01 Dose: 650 mg Bupropion HCl (Wellbutrin Tab*) 150 mg PO BID [facility] Last Admin: 10/11/18 07:52 Dose: 150 mg Diphenhydramine HCl (Benadryl Iv*) 25 mg IV Q6H PRN PRN Reason: Headache Last Admin: 10/11/18 00:57 Dose: 25 mg Gabapentin (Neurontin Cap(*)) 300 mg PO BEDTIME [facility] Last Admin: 10/10/18 21:15 Dose: 300 mg Acyclovir Sodium 547 mg/ (Sodium Chloride) 110.94 mls @ 110.94 mls/hr IVPB Q8H [facility] Last Admin: 10/11/18 10:45 Dose: 110.94 mls/hr Levothyroxine Sodium (Synthroid Tab*) 75 mcg PO DAILY@0600 [facility] Last Admin: 10/11/18 06:02 Dose: 75 mcg Morphine Sulfate (Morphine 4 Mg/Ml Vial (1 Ml)) 4 mg IV Q4H PRN PRN Reason: PAIN - MODERATE TO SEVERE Last Admin: 10/11/18 02:51 Dose: 4 mg Non-Formulary Medication (Zolmitriptan [Zomig]) 2.5 mg NS DAILY PRN PRN Reason: MIGRAINE HEADACHE Ondansetron HCl (Zofran Inj*) 4 mg IV Q4H PRN PRN Reason: NAUSEA/VOMITING Last Admin: 10/09/18 07:13 Dose: 4 mg Pantoprazole Sodium (Protonix Tab*) 40 mg PO DAILY [facility] Last Admin: 10/11/18 07:52 Dose: 40 mg Vital Signs 10/10/18 10/10/18 10/10/18 15:00 20:00 21:15 Temperature 98 F Pulse Rate 76 Respiratory 16 18 19 Rate Blood Pressure 111/55 (mmHg) O2 Sat by Pulse 95 Oximetry 10/10/18 10/10/18 10/11/18 21:22 23:04 00:21 Temperature 98.7 F 98.1 F Pulse Rate 72 77 Respiratory 16 17 16 Rate Blood Pressure 134/58 129/67 (mmHg) O2 Sat by Pulse 96 97 Oximetry 10/11/18 10/11/18 10/11/18 00:57 02:00 02:51 Temperature Pulse Rate Respiratory 16 17 18 Rate Blood Pressure (mmHg) O2 Sat by Pulse Oximetry 10/11/18 10/11/18 10/11/18 03:55 03:58 07:38 Temperature 98.4 F 98.5 F Pulse Rate 67 71 Respiratory 17 18 16 Rate Blood Pressure 124/72 134/86 (mmHg) O2 Sat by Pulse 96 97 Oximetry 10/11/18 10/11/18 07:50 10:56 Temperature 97.7 F Pulse Rate 72 Respiratory 16 16 Rate Blood Pressure 123/66 (mmHg) O2 Sat by Pulse 96 Oximetry Intake and Output Last 24 Hours 10/09/18 10/10/18 10/11/18 10/12/18 06:59 06:59 06:59 06:59 Intake Total 2150 2236 3072 440 Output Total 0 100 Balance 2150 2236 2972 440 Weight 155 lb 177 lb 11.2 oz Intake: IV Fluids 2150 339 631 ANTIVIRAL - ACYCLOVIR 30 350 NS (0.9%) 309 281 IVPB 577 211 ABX - CEFTRIAXONE 106 ANTIVIRAL - ACYCLOVIR 100 211 NS (0.9%) 371 Oral 1320 2230 440 Output: Urine 0 100 Other: Estimated Void Medium # Voids 1 Oxygen Devices in Use Now: None Neurology Exam: General: Well nourished, well developed, and in no acute distress HEENT: Normocephelic/atraumatic, sclera anicteric, mucous membranes moist Neck: Supple Chest: Clear to auscultation bilaterally Cardiovascular: Regular rate and rhythm without murmurs, rubs, gallops Abdomen: Soft, non-tender/non-distended Extremities: No clubbing, cyanosis, or edema Skin: erythematous rash extending from the base of the neck down the fingers involving digit 5. Neurological Findings: Awake, alert, and oriented to person, place, and time. Speech: fluent without dysarthria, repetition intact Cranial Nerve: PERRL, EOM intact, VFF, no nystagmus, face symmetric bilaterally , facial sensation intact, hearing intact to finger rub bilaterally, palate elevates symmetrically, tongue midline, SCM and Trapezius s/s. Motor: s/s throughout, proximal and distal extremities x4 tone/bulk normal Sensation: intact to LT/PP bilaterally upper and lower extremities Deep Tendon Reflex: 2+ symmetric in the upper/lower extremities, Babinski - down going Finger to nose, rapid alternating movements intact without tremor, no dysdiadochokinesia Gait: intact with good arm swing and stride Result Diagrams: 10/11/18 05:35 10/11/18 05:35 Additional Lab and Data: Laboratory Last Values WBC 6.8 10^3/uL (3.5-10.8) 10/09/18 05:36 RBC 3.70 10^6 /uL (3.70-4.87) 10/09/18 05:36 Hgb 12.1 g/dL (12.0-16.0) 10/09/18 05:36 Hct 35 % (35-47) 10/09/18 05:36 MCV 94 fL (80-97) 10/09/18 05:36 MCH 33 pg (27-31) H 10/09/18 05:36 MCHC 35 g/dL (31-36) 10/09/18 05:36 RDW 14 % (10-15) 10/09/18 05:36 Plt Count 205 10^3/uL (150-450) 10/09/18 05:36 MPV 9.5 fL (7.4-10.4) 10/09/18 05:36 Neut % (Auto) 82.5 % 10/09/18 05:36 Lymph % (Auto) 11.9 % 10/09/18 05:36 White % (Auto) 5.0 % 10/09/18 05:36 Eos % (Auto) 0.1 % 10/09/18 05:36 Baso % (Auto) 0.5 % 10/09/18 05:36 Absolute Neuts (auto) 5.6 10^3/ul (1.5-7.7) 10/09/18 05:36 Absolute Lymphs (auto) 0.8 10^3/ul (1.0-4.8) L 10/09/18 05:36 Absolute Monos (auto) 0.3 10^3/ul (0-0.8) 10/09/18 05:36 Absolute Eos (auto) 0.0 10^3/ul (0-0.6) 10/09/18 05:36 Absolute Basos (auto) 0.0 10^3/ul (0-0.2) 10/09/18 05:36 Absolute Nucleated RBC 0.0 10^3/ul 10/09/18 05:36 Nucleated RBC % 0.0 10/09/18 05:36 INR (Anticoag Therapy) 1.51 (0.82-1.09) H 10/09/18 02:32 APTT 42.2 seconds (26.0-38.0) H 10/09/18 02:32 Sodium 137 mmol/L (135-145) 10/09/18 05:36 Potassium 3.8 mmol/L (3.5-5.0) D 10/09/18 05:36 Chloride 107 mmol/L (101-111) 10/09/18 05:36 Carbon Dioxide 24 mmol/L (22-32) 10/09/18 05:36 Anion Gap 6 mmol/L (2-11) 10/09/18 05:36 BUN 13 mg/dL (6-24) 10/09/18 05:36 Creatinine 0.50 mg/dL (0.51-0.95) L 10/09/18 05:36 Est GFR ( Amer) 152.3 (>60) 10/09/18 05:36 Est GFR (Non-Af Amer) 125.9 (>60) 10/09/18 05:36 BUN/Creatinine Ratio 26.0 (8-20) H 10/09/18 05:36 Glucose 131 mg/dL (70-100) H 10/09/18 05:36 Calcium 8.5 mg/dL (8.6-10.3) L 10/09/18 05:36 Phosphorus 2.1 mg/dL (2.5-5.0) L 10/09/18 05:36 Magnesium 2.5 mg/dL (1.9-2.7) 10/09/18 05:36 Total Bilirubin 0.20 mg/dL (0.2-1.0) 10/09/18 05:36 AST 19 U/L (13-39) 10/09/18 05:36 ALT 25 U/L (7-52) 10/09/18 05:36 Alkaline Phosphatase 78 U/L (34-104) 10/09/18 05:36 C-Reactive Protein 1.86 mg/L (<8.01) 10/09/18 02:32 Total Protein 6.0 g/dL (6.4-8.9) L 10/09/18 05:36 Albumin 4.0 g/dL (3.2-5.2) 10/09/18 05:36 Globulin 2.0 g/dL (2-4) 10/09/18 05:36 Albumin/Globulin Ratio 2.0 (1-3) 10/09/18 05:36 TSH 0.47 mcIU/mL (0.34-5.60) 10/09/18 02:32 Urine Color Yellow 10/09/18 04:40 Urine Appearance Clear 10/09/18 04:40 Urine pH 7.0 (5-9) 10/09/18 04:40 Ur Specific [place] 1.009 (1.010-1.030) L 10/09/18 04:40 Urine Protein Negative (Negative) 10/09/18 04:40 Urine Ketones Trace (Negative) A 10/09/18 04:40 Urine Blood Negative (Negative) 10/09/18 04:40 Urine Nitrate Negative (Negative) 10/09/18 04:40 Urine Bilirubin Negative (Negative) 10/09/18 04:40 Urine Urobilinogen Negative (Negative) 10/09/18 04:40 Ur Leukocyte Esterase Negative (Negative) 10/09/18 04:40 Urine Glucose Negative (Negative) 10/09/18 04:40 Fluid Source Cerebral spinal 10/09/18 03:00 Fluid Volume 2 mL 10/09/18 03:00 Fluid Color Colorless 10/09/18 03:00 Fluid Appearance Clear 10/09/18 03:00 Fluid WBC 0 /mcL 10/09/18 03:00 Fluid RBC 0 /mcL 10/09/18 03:00 Fluid Tot Cell Count Not Reportable 10/09/18 03:00 Fluid Neutrophils Not Reportable 10/09/18 03:00 CSF Cell Count Tube # 4 10/09/18 03:00 CSF Glucose 77 mg/dL (40-70) H 10/09/18 03:00 CSF Total Protein 72 mg/dL (15-45) H 10/09/18 03:00 Microbiology and Other Data: Microbiology 10/09/18 03:00 CSF Gram Stain (Tube 3) - Preliminary Cerebral Spinal Fluid Diagnostic Imaging: CT BRAIN WO IMPRESSION: No acute intracranial abnormality. Assessment/Plan 1. Headache: nonspecific and most likely related to drug side effect (Valtrex). Other possible etiology include: cervicalgia, occipital neuralgia, or radiating pain from the shingles at C8. The pain is improving. Her main issue now is the nerve pain in the left upper extremity. Recommendations: - Increase gabapentin to 300 mg twice daily for three days to check if she can tolerate the dose. If the pain persists, then increase to 300 mg three times a day. - She can be discharged with oral narcotic therapy for 10-14 days - Follow-up with neurology as an outpatient. We will arrange for an appointment with our commercial credit specialist at [facility] Neurology. 2. Elevated CSF protein: this can be seen in thyroid disease or related to an inflammatory response secondary to the shingles. 3. Segmental rash related to shingles: she has no evidence of meningitis or encephalitis. Discussed case with Dr. Brewster. The patient will be treated with acylcovir no matter what the CSF results shows. Therefore, there is no indication for repeating a lumbar puncture at this time. I will sign off. Please contact me for any questions or concerns.
[2018-10-11 14:20] LABS: Body Fluid Mono 13 %
--- NOTE | 2018-10-11 18:00 | PN ---
Subjective Date of Service: 10/11/18 Interval History: Patient had notable headache Thursday night, and pain radiating up and down LT arm and into neck and face last night. Feeling well during day, but nights have been difficult. Family History: Unchanged from Admission Social History: Unchanged from Admission Past Medical History: Unchanged from Admission Objective Active Medications: Acetaminophen (Tylenol Tab*) 650 mg PO Q6H PRN PRN Reason: FEVER/HEADACHE Last Admin: 10/11/18 06:01 Dose: 650 mg Bupropion HCl (Wellbutrin Tab*) 150 mg PO BID [facility] Last Admin: 10/11/18 07:52 Dose: 150 mg Diphenhydramine HCl (Benadryl Iv*) 25 mg IV Q6H PRN PRN Reason: Headache Last Admin: 10/11/18 00:57 Dose: 25 mg Gabapentin (Neurontin Cap(*)) 300 mg PO BEDTIME [facility] Last Admin: 10/10/18 21:15 Dose: 300 mg Acyclovir Sodium 547 mg/ (Sodium Chloride) 110.94 mls @ 110.94 mls/hr IVPB Q8H [facility] Last Admin: 10/11/18 10:45 Dose: 110.94 mls/hr Levothyroxine Sodium (Synthroid Tab*) 75 mcg PO DAILY@0600 [facility] Last Admin: 10/11/18 06:02 Dose: 75 mcg Morphine Sulfate (Morphine 4 Mg/Ml Vial (1 Ml)) 4 mg IV Q4H PRN PRN Reason: PAIN - MODERATE TO SEVERE Last Admin: 10/11/18 02:51 Dose: 4 mg Non-Formulary Medication (Zolmitriptan [Zomig]) 2.5 mg NS DAILY PRN PRN Reason: MIGRAINE HEADACHE Ondansetron HCl (Zofran Inj*) 4 mg IV Q4H PRN PRN Reason: NAUSEA/VOMITING Last Admin: 10/09/18 07:13 Dose: 4 mg Pantoprazole Sodium (Protonix Tab*) 40 mg PO DAILY [facility] Last Admin: 10/11/18 07:52 Dose: 40 mg Vital Signs - 8 hr 10/11/18 10/11/18 10:56 14:52 Temperature 36.5 C 36.8 C Pulse Rate 72 67 Respiratory 16 16 Rate Blood Pressure 123/66 114/64 (mmHg) O2 Sat by Pulse 96 97 Oximetry Oxygen Devices in Use Now: None Appearance: ambulatory, alert Eyes: No Scleral Icterus Ears/Nose/Mouth/Throat: NL Teeth, Lips, Gums Neck: NL Appearance and Movements; NL JVP, Trachea Midline Respiratory: Symmetrical Chest Expansion and Respiratory Effort, Clear to Auscultation Cardiovascular: NL Sounds; No Murmurs; No JVD, RRR Abdominal: NL Sounds; No Tenderness; No Distention Lymphatic: No Cervical Adenopathy Extremities: No Edema Skin: - - dermatomal rash LT UE C8 distribution Neurological: Alert and Oriented x 3, NL Gait, NL Muscle Strength and Tone Lines/Tubes/Other Access: Clean, Dry and Intact Peripheral IV Nutrition: Taking PO's Result Diagrams: 10/11/18 05:35 10/11/18 05:35 Microbiology and Other Data: Microbiology 10/09/18 03:00 Cerebral Spinal Fluid CSF Gram Stain (Tube 3) - Final 10/09/18 03:00 Cerebral Spinal Fluid CSF Culture - Preliminary No Growth Day 2 10/09/18 02:50 Blood Venous Aerobic Blood Culture - Preliminary 10/09/18 02:50 Blood Venous Anaerobic Blood Culture - Preliminary No Growth Day 2 No Growth Day 2 10/09/18 02:32 Blood Venous Aerobic Blood Culture - Preliminary 10/09/18 02:32 Blood Venous Anaerobic Blood Culture - Preliminary No Growth Day 2 No Growth Day 2 Assess/Plan/Problems-Billing 62 yo woman with shingles, suspected aseptic meningitis. - Patient Problems (1) Aseptic meningitis Current Visit: Yes Status: Acute Priority: High Code(s): G03.0 - NONPYOGENIC MENINGITIS SNOMED Code(s): 414299406 Comment: -Initially suspected due to shingles and LP results -Varicella PCR added in addition to HSV and other CSF studies pending -Dr. Brewster advised full course of acyclovir, IV for now, can go home w/ PO when stable (2) Shingles rash Current Visit: Yes Status: Acute Priority: Medium Code(s): B02.9 - ZOSTER WITHOUT COMPLICATIONS SNOMED Code(s): 1499122 Comment: -Neurology consult appreciated -Increased dose gabapentin may help nighttime pain improve -Could go home w/ supplemental opiates tomorrow (3) DVT prophylaxis Current Visit: Yes Status: Acute Priority: Low Code(s): Z29.9 - ENCOUNTER FOR PROPHYLACTIC MEASURES, UNSPECIFIED SNOMED Code(s): 973155384 Comment: -Low risk, ambulatory Status and Disposition: inpatient, possible discharge tomorrow
[2018-10-11 18:03] LABS: HSV 1 PCR, CSF Negative (Negative); HSV 2 PCR, CSF Negative (Negative)
[2018-10-11] MEDS ORDERED: Vancomycin Trough Check NOTE FOLLOW UP ONE (20:00)
--- NOTE | 2018-10-11 21:53 | CONS ---
CONSULTATION REPORT: DATE OF CONSULT: 10/11/18 REQUESTING PHYSICIAN: Dr. Hughes. REASON FOR CONSULTATION: Headache, vomiting. IMPRESSION: Recent diagnosis of left T1-C8 distribution zoster. Subsequent headache and vomiting. Spinal fluid showed increased protein, normal spinal fluid count of 0. This may have been an adverse reaction to Valtrex or other medication. There is a possibility of a zoster meningitis, which is a self- limited process. RECOMMENDATIONS: We will change her IV acyclovir to oral acyclovir predominantly to treat her left upper extremity zoster flare. I discussed the case with Dr. Cummings who plans to start gabapentin as well for the neuropathic symptoms. HISTORY OF PRESENT ILLNESS: This is a 62-year-old woman recently diagnosed with zoster of her left arm with lesions from the back of the neck down through the hand that had been painful with radicular pain and some tingling. She started Valtrex last week and then the next day developed a slight headache, the following day a more severe headache. She was taking ibuprofen and tramadol on a regular basis throughout that time, had worsening headache, some low-grade chills and fever. Because of progression of headache and vomiting, she came to the hospital on 10/09/18. She had brain imaging that was unremarkable, a CT scan. She had an HIV test that was negative. She had a lumbar puncture that showed spinal fluid. White cell count was 0. The protein was 72. The glucose was 77. The spinal fluid Gram stain showed no organisms. The cultures negative for 48 hours. Today, she has mild headache. She has continued numbness and pain down in her left arm. The lesions are starting to resolve a little bit she thinks, has not noticed any new ones. Her appetite has been okay. PAST MEDICAL HISTORY: 1. Hypothyroidism. 2. Basal cell skin cancer. 3. Gastroesophageal reflux disease. 4. Depression. 5. Migraine headache. 6. Osteoarthritis. 7. Status post left knee meniscal tear repair. 8. Status post left knee arthroplasty. 9. Status post right carpal tunnel release. 10. Status post right 3rd and 4th trigger finger release. MEDICATIONS: 1. Tylenol. 2. Bupropion. 3. Benadryl as needed. 4. Gabapentin. 5. Levothyroxine. 6. Pantoprazole. 7. Zolmitriptan. 8. Acyclovir 550 mg IV every 8 hours. ALLERGIES: No known drug allergies. SOCIAL HISTORY: She is a past smoker. Lives with partner and their son. 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 FAMILY HISTORY: Both parents had dementia. Mother had osteoarthritis. REVIEW OF SYSTEMS: All negative, except as noted above to a 12-point review. PHYSICAL EXAMINATION: Vital Signs: Temperature 37, heart rate 70, respiratory rate 16, blood pressure 114/64, oxygen saturation 97% on room air. In general, she is awake, not in distress. Neurologic: She is oriented x3. Follows all commands. Sensation is intact to light touch in both hands. HEENT: There is no conjunctival hemorrhage. Oropharynx: Without lesions. Neck is supple without mass. Heart is regular rate and rhythm without murmurs, rubs, or gallops. Lungs are clear to auscultation bilaterally. Abdomen: Soft, nontender, nondistended. There are bowel sounds present. Skin: There are erythematous macules of thumb vesicle and groups of vesicles from the left side of the neck down to the 4th and 5th fingers. LABORATORY DATA: White blood cell count is 4, hemoglobin 12, platelets 208, 000. Creatinine 0.6. CRP was 1.8 on admission. Please see impressions and recommendations outlined above, which I have discussed with Dr. Cummings. Thank you for asking me to see Ms. Edmonds in consultation. [id number]/[facility] #: [id number] SALIMA
[2018-10-11] MEDS: Gabapentin CAP(*) 300 MG PO SCH (21:56)
[2018-10-12] MEDS: NS 0.9% IVPB SCH ×2 (02:12→10:16)
[2018-10-12] MEDS: ACYCLOVIR IVPB SCH ×2 (02:12→10:16)
[2018-10-12] MEDS: Acetaminophen TAB* 325 MG PO PRN ×2 (02:19→07:19)
[2018-10-12] MEDS: Levothyroxine TAB* 75 MCG TAB PO SCH (06:35)
[2018-10-12] MEDS: buPROPion TAB* 75 MG PO SCH (08:05)
[2018-10-12] MEDS: Pantoprazole TAB * 40 MG TAB PO SCH (08:06)
--- NOTE | 2018-10-12 12:01 | CONS ---
CONSULTATION REPORT: DATE OF CONSULT: 10/12/18 HISTORY OF PRESENT ILLNESS: A 62-year-old right-hand dominant female with complaint of global headache x1 week with left arm pain x4 days. Her headache started 1 week ago and became progressively worse with associated nausea and vomiting. Her left arm pain started last Thursday and extended all the way from her neck down to her shoulders, arms, and hands. The patient was followed up in the ED with a complaint of headache, nausea, and vomiting. Last Thursday she began to notice that she had a skin lesion, just on the left side on her fingers, starting in her fingers in the web spaces of her hands and up her left arm which were also painful as well. She denies any acute changes in vision, also denies any issues with balance or falling. Also denies issues with loss of control of bladder or bowel. The patient was evaluated in the ED, completed a head CT. Neurosurgeon was called to evaluate the patient. PAST MEDICAL HISTORY: 1. Migraine headaches. 2. Thyroiditis. 3. Hypothyroidism. 4. Osteoarthritis. 5. Degenerative disk disease of the cervical spine. 6. GERD. PAST SURGICAL HISTORY: 1. Knee replacement surgery. 2. Left carpal tunnel surgery. 3. Left trigger finger release surgery. 4. Basal cell carcinoma, mole removal surgery. MEDICATIONS: 1. Valacyclovir 1000 mg p.o. t.i.d. 2. Zolmitriptan (Zomig) 2.5 mg NS daily p.r.n. 3. Omeprazole 20 mg p.o. daily. 4. Wellbutrin 150 mg p.o. b.i.d. 5. Synthroid 0.75 mcg p.o. daily. 6. Gabapentin 300 mg p.o. at bedtime. ALLERGIES: No known allergies. SOCIAL HISTORY: Denies tobacco use, quit smoking in 1993. Admits to alcohol use 5 times a week, gradually has stopped because of GERD. Denies drug use. OBJECTIVE: Vitals: Temperature is 97.5, heart rate is 65 to 69, respirations 16 to 20, O2 saturation is 97% on room air, blood pressure is 116 to 122 over 72 to 74. The patient is sitting upright in bed comfortable, in no acute distress. Head: Atraumatic. Neck is symmetric. Neuro: The patient's GCS 15. Alert and oriented x4. Cranial nerves II through XII grossly intact without impairment. Negative pronator drift. EOMs intact without impairment. Upper motor strength 5/5 bilaterally throughout. Lower extremity motor strength 5/5 throughout. Srinivasan's on the right. Negative Babinski's. Negative clonus. Sensation is intact throughout. Derm: The patient has erythematous lesions seen on her right upper extremity on the inside of the 5th digit, also on the wrist and forearm. ASSESSMENT: A 62-year-old female with acute headaches x1 week with nausea, vomiting; with left upper extremity radicular pain. Neurologically intact with focal deficits. CT scan of the head did not show any acute findings. PLAN/RECOMMENDATIONS: The patient is doing well. She has been following with Neurology and Infectious Disease and seems to be recovered at this point. She is stable. There is no indication that her symptoms are spine or brain related. The patient should continue to follow with Neurology and Infectious Disease and pain control as needed. LBU HAN [id number]/[facility] #: [id number] MTDD
[2018-10-12 12:04] VITALS: BP 126/67
[2018-10-13 00:41] LABS: Varicella IgG Antibody Index 4.5; Varicella-Zoster IgG Antibody Positive
[2018-10-13 16:12] LABS: Varicella-Zoster IgM Antibody Negative (Negative)
--- NOTE | 2018-10-13 16:44 | DS ---
CC: Dr. Starr; Ashwini Ramsay NP * DISCHARGE SUMMARY: DATE OF ADMISSION: 10/09/18 DATE OF DISCHARGE: 10/12/18 PRIMARY DIAGNOSES: 1. Shingles with suspected viral meningitis. 2. Intractable headache. 3. 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 4. History of basal cell cancer resection. 5. Gastroesophageal reflux disease. 6. Depression. 7. History of migraines. 8. Osteoarthritis. 9. History of tobacco abuse. MEDICATIONS ON DISCHARGE: 1. Wellbutrin SR 150 mg p.o. b.i.d. 2. Levothyroxine 75 mcg p.o. daily. 3. Omeprazole 20 mg p.o. daily. 4. Zolmitriptan nasal spray 2.5 mg as needed. 5. Acetaminophen 650 mg p.o. q.6 hours p.r.n. pain or fever. 6. Acyclovir 800 mg p.o. 5 times a day. 7. Gabapentin 400 mg p.o. q.h.s. 8. Oxycodone 10 mg p.o. b.i.d. p.r.n. for 1 week (I checked I-STOP and sent in 15 tablets). CONSULTATIONS: Dr. Starr of Neurology and Dr. Brewster of Infectious Disease. PROCEDURES: None. HOSPITAL COURSE: A 62-year-old woman with recent diagnosis of shingles who presented with severe neck and head pain as well as photophobia. She had no temperature or confusion. Initial suspicion was viral meningitis due to varicella zoster. She did have normal white count on admission and she had a lumbar puncture that showed elevated glucose of 77, elevated total protein of 72. There were 5 white cells and CSF HSV-1 was negative and CSF herpes 2 was negative. CSF VZV was canceled as the test was not authorized to be performed in [facility]. [employer]END[employer] Lyme assay was pending on discharge. HIV was negative. Varicella zoster IgG was positive in the bloodstream and IgM antibody is pending on discharge. CSF Gram stain and culture was negative after 4 days. Blood culture was negative after 4 days as well. The patient was admitted to the hospital and treated with intravenous acyclovir. Neurology consult felt that possibly her headache was due to an adverse effect to valacyclovir. She was also initially treated for bacterial meningitis given the elevated protein and glucose, but Dr. Brewster felt that she should only be treated for viral meningitis given the results available to him. There was some odd blood test taken at 2 a.m. on the day of admission with a low hemoglobin and hematocrit and a very low potassium at 1.9 and an undetectable creatinine. It appears that this was a lab error given that repeat blood tests were done 3 hours later in the ER with normal potassium, normal creatinine, normal calcium, and normalization of the hemoglobin at 12.1, probably a nurse hailey blood mixed with saline. DISPOSITION: Home. STATUS: Inpatient. CONDITION: Good. ACTIVITY: Should be as tolerated. The patient can return to work after . DIET: Should be regular. TIME SPENT: I spent 40 minutes with the patient on the day of discharge, plus time used for paperwork and discharge planning. [id number]/[facility] #: [id number] MTDD
== END 2018-10-12 13:50 | disposition home or self-care (01) | DRG 76 ==
LOC: ED 21:54 → MEDTELE 10-09 08:16
PROVIDERS: ADMIT Internal Medicine; ATTEND Internal Medicine
PROC: 009U3ZX Drainage of Spinal Canal, Percutaneous Approach, Diagnostic (ICD-10-PCS; principal; 2018-10-09)
DX: B02.1 Zoster meningitis (principal); G44.89 Other headache syndrome; E03.9 Hypothyroidism, unspecified; E06.3 Autoimmune thyroiditis; K21.9 Gastro-esophageal reflux disease without esophagitis; T37.5X5A Adverse effect of antiviral drugs, initial encounter; F32.9 Major depressive disorder, single episode, unspecified; E87.8 Other disorders of electrolyte and fluid balance, not elsewhere classified; M19.90 Unspecified osteoarthritis, unspecified site; M50.30 Other cervical disc degeneration, unspecified cervical region; Z96.652 Presence of left artificial knee joint; Z87.891 Personal history of nicotine dependence; Z85.828 Personal history of other malignant neoplasm of skin; Y92.9 Unspecified place or not applicable; Z82.61 Family history of arthritis; Z82.49 Family history of ischemic heart disease and other diseases of the circulatory system; Z79.899 Other long term (current) drug therapy
CPT/HCPCS: 36415; 70450; 80048; 80053; 81003; 82945; 83735; 84100; 84157; 84439; 84443; 85025; 85610; 85730; 86140; 86618; 86787; 87040; 87070; 87205; 87389; 87529; 89051; 99284; A9270-GY; J0133; J0610; J0696; J1200; J1885; J2270; J2405; J2765; J3370; J3475; J3480